=== PATIENT | female | born 1950 | race Caucasian/White ===

== ENCOUNTER 2020-08-07 16:20 | Inpatient (IN) ==
[2020-08-07] MEDS ORDERED: 0.9 % Sodium Chloride 1,000 ML IVC ONE (17:50)
[2020-08-07] MEDS ORDERED: Ondansetron 4 MG/2 ML VIAL IVP ONE (17:50)
[2020-08-07] MEDS ORDERED: Isovue-370 500 ML BOTTLE IVP ONE (17:51)
[2020-08-07 18:11] LABS: Basophils % 0.4 %; Hemoglobin 11.4 g/dL (11.5-15.4); Immature Granulocytes % 0.4 % (0-4)
[2020-08-07 18:11] LABS: Bilirubin,Urine Negative (Negative); Blood,Urine Negative (Negative); Clarity,Urine Clear (Clear); Color,Urine Yellow (Yellow); Glucose,Urine (UA) Normal (Normal); Ketones,Urine Negative (Negative); Leukocyte Esterase,Urine Negative (Negative); Nitrite,Urine Negative (Negative); PH,Urine 6.5 pH Units (5.0-8.0); Protein,Urine Negative (Neg-Trace); Specific Gravity,Urine 1.015 (1.010-1.025); Urobilinogen,Urine Normal (Normal)
[2020-08-07 18:13] LABS: Eosinophils # 0.1 K/mcL (0.0-0.6); Eosinophils % 3.9 %; Hematocrit 35.7 % (35.3-44.9); Immature Platelets 2.2 % (1.1-6.1); Lymphocytes # 0.8 K/mcL (0.6-4.6); Lymphocytes % 32.7 %; Mean Corpuscular HGB Conc 31.9 g/dL (31.6-35.5); Mean Corpuscular Hemoglobin 28.1 pg (28.0-33.3); Mean Corpuscular Volume 88.1 fL (83.0-100.0); Mean Platelet Volume 10.2 fL (9.4-12.4); Monocytes # 0.2 K/mcL (0.0-1.3); Monocytes % 8.7 %; Neutrophils # 1.4 K/mcL (1.6-8.9); Red Blood Count 4.05 M/mcL (3.82-4.97); Segmented Neutrophils % 53.9 %; White Blood Count 2.5 K/mcL (4.3-11.1)
[2020-08-07 18:16] LABS: Platelet Count 94 K/mcL (140-400)
[2020-08-07 18:33] LABS: Alanine Aminotransferase 6 Units/L (7-52); Albumin 3.8 g/dL (3.5-5.7); Albumin/Globulin Ratio 1.3 (1.1-2.2); Alkaline Phosphatase 67 Units/L (34-104); Amylase 21 Units/L (29-103); Aspartate Amino Transferase 11 Units/L (13-39); BUN/Creatinine Ratio 23 (6-26); Bilirubin,Direct 0.1 mg/dL (0.0-0.2); Bilirubin,Indirect 0.4 mg/dL (0.0-1.0); Bilirubin,Total 0.5 mg/dL (0.3-1.0); Blood Urea Nitrogen 16 mg/dL (8-23); Calcium 9.3 mg/dL (8.6-10.3); Carbon Dioxide 31 mEq/L (23-29); Chloride 95 mEq/L (98-107); Glucose 162 mg/dL (70-105); Lipase 13 Units/L (11-82); Osmolality,Calculated 281 (280-300); Potassium 3.9 mEq/L (3.5-5.1); Sodium 133 mEq/L (136-145); Total Protein 6.8 g/dL (6.4-8.9); Troponin I < 0.03 ng/mL (< 0.04); eGFR For African Americans > 60 (> 60); eGFR For Non-African Americans > 60 (> 60)
[2020-08-07 20:36] LABS: Lactate Dehydrogenase 164 Units/L (140-271); Phosphorous 2.6 mg/dL (2.7-4.5); Uric Acid 2.4 mg/dL (2.3-7.6)
[2020-08-07] MEDS ORDERED: Naloxone 0.4 MG/ML INJ IVP PRN ×2 (22:54→22:56)
[2020-08-07] MEDS ORDERED: Ondansetron 4 MG/2 ML VIAL IVP PRN (22:55)
[2020-08-07] MEDS ORDERED: 0.9 % Sodium Chloride 1,000 ML IVC SCH (23:00)
[2020-08-07] MEDS: *HR* Heparin 5,000 UNIT/ML VIAL SQ SCH (23:15)
[2020-08-08] MEDS ORDERED: *HR* LORazepam 2 MG/ML VIAL IVP ONE ×2 (03:16)
[2020-08-08] MEDS ORDERED: Morphine Sulfate 2 MG/ML SYRINGE IVP PRN ×2 (03:19→12:07)
[2020-08-08] MEDS: *HR* Heparin 5,000 UNIT/ML VIAL SQ SCH ×2 (04:56→20:57)
[2020-08-08] MEDS ORDERED: *HR* Propofol 200 MG/20 ML VIAL IVP ONE (10:04)
[2020-08-08] MEDS ORDERED: Dexamethasone 4 MG/ML VIAL ONE (10:04)
[2020-08-08] MEDS ORDERED: Lidocaine -MPF 2% 2 ML VIAL ONE (10:04)
[2020-08-08] MEDS ORDERED: *HR* Rocuronium Bromide 50 MG/5 ML VIAL ONE (10:04)
[2020-08-08] MEDS ORDERED: Ondansetron 4 MG/2 ML VIAL ONE (10:04)
[2020-08-08] MEDS ORDERED: *HR* FentaNYL (PF) 100 MCG/2 ML VIAL ONE (10:04)
[2020-08-08] MEDS ORDERED: *HR* Meperidine 25 MG/ML SYRINGE IVP PRN ×2 (10:49→11:13)
[2020-08-08 11:19] LABS: Adenovirus Not Detected (Not Detect); Bordetella Pertussis Not Detected (Not Detect); Chlamydophila pneumoniae Not Detected (Not Detect); Coronavirus 229E Not Detected (Not Detect); Coronavirus HKU1 Not Detected (Not Detect); Coronavirus NL63 Not Detected (Not Detect); Coronavirus OC43 Not Detected (Not Detect); Human Metapneumovirus Not Detected (Not Detect); Human Rhinovirus/Enterovirus DETECTED (Not Detect); Influenza A Subtype 2009 H1 Not Detected (Not Detect); Influenza B Not Detected (Not Detect); Mycoplasma pneumoniae Not Detected (Not Detect); Parainfluenza Virus 1 Not Detected (Not Detect); Parainfluenza Virus 2 Not Detected (Not Detect); Parainfluenza Virus 3 Not Detected (Not Detect); Parainfluenza Virus 4 Not Detected (Not Detect); Respiratory Syncytial Virus Not Detected (Not Detect); SARS-CoV-2 Not Detected (Not Detect)
[2020-08-08] MEDS ORDERED: *HR* Magnesium Sulfate 1 GM/2 ML VIAL ONE (12:06)
[2020-08-08] MEDS ORDERED: *HR* Succinylcholine 200 MG/10 ML VIAL IVP ONE (12:06)
[2020-08-08] MEDS ORDERED: *HR* HYDROmorphone PF 0.5 MG/0.5 ML SYRINGE IVP PRN (12:07)
[2020-08-08] MEDS ORDERED: Ondansetron 4 MG/2 ML VIAL IVP ONE (12:07)
[2020-08-08] MEDS ORDERED: Acetaminophen IV 1,000 MG/100 ML INFUS..BTL IVPB ONE ×2 (12:07→15:59)
[2020-08-08] MEDS ORDERED: Ketorolac 15 MG/ML VIAL IVP ONE (12:07)
[2020-08-08] MEDS ORDERED: Ringers Solution, Lactated 1,000 ML IVC SCH (12:15)
[2020-08-08] MEDS ORDERED: ROPIVACAINE/PF/NS 0.25% 1 EACH SYRINGE INTRAART ONE ×2 (12:24→12:25)
[2020-08-08] MEDS ORDERED: Albumin Human 5% 25.0 GM/500 ML IV.SOLN ONE (12:24)
[2020-08-08] MEDS ORDERED: Clindamycin 600 MG/50 ML 600 MG/50 ML IV.SOLN IVPB ONE ×2 (12:35→12:59)
[2020-08-08] MEDS ORDERED: *HR* HYDROMORPHONE 2 MG/ML VIAL ONE (13:00)
[2020-08-08] MEDS ORDERED: Gabapentin 300 MG CAPSULE PO SCH (15:00)
[2020-08-08] MEDS: *HR* HYDROmorphone (PF) 1 MG/ML SYRINGE IVP PRN ×2 (15:20→15:33)
[2020-08-08] MEDS ORDERED: Ondansetron 4 MG/2 ML VIAL IVP PRN (15:59)
[2020-08-08] MEDS ORDERED: 0.9 % Sodium Chloride 1,000 ML IVC SCH (15:59)
[2020-08-08] MEDS ORDERED: Naloxone 0.4 MG/ML INJ IVP PRN ×2 (15:59)
[2020-08-08] MEDS: 0.9 % Sodium Chloride 1,000 ML IVC SCH ×3 (17:13→21:40)
[2020-08-08] MEDS: Gabapentin 300 MG CAPSULE PO SCH ×2 (17:14→20:54)
[2020-08-08] MEDS: *HR* HYDROcodone/Acet 10/325 mg TABLET PO PRN ×2 (17:15→23:24)
[2020-08-08] MEDS: Morphine Sulfate ER (12 HR) 30 MG TABLET.ER PO SCH (20:54)
[2020-08-08] MEDS ORDERED: traZODone 50 MG TABLET PO SCH (21:00)
[2020-08-09] MEDS ORDERED: Acetaminophen IV 1,000 MG/100 ML INFUS..BTL IVPB ONE (02:12)
[2020-08-09] MEDS ORDERED: Chloraseptic Spray 177 ML BOTTLE MM PRN (04:19)
[2020-08-09] MEDS ORDERED: *HR* HYDROmorphone 2 MG TABLET PO ONE (04:41)
[2020-08-09] MEDS: *HR* Heparin 5,000 UNIT/ML VIAL SQ SCH ×2 (06:48→13:21)
[2020-08-09] MEDS ORDERED: Loratadine 10 MG TABLET PO SCH (09:00)
[2020-08-09] MEDS ORDERED: Folic Acid 1 MG TABLET PO SCH ×3 (09:00)
[2020-08-09] MEDS ORDERED: Cyanocobalamin (B-12) 1,000 MCG TABLET PO SCH ×2 (09:00)
[2020-08-09] MEDS ORDERED: Isosorbide MONOnitrate (24 HR) 60 MG TAB.ER.24H PO SCH (09:00)
[2020-08-09] MEDS ORDERED: Fluticasone Propionate Nasal 50 MCG/SPRAY BOTTLE NS SCH (09:00)
[2020-08-09 09:08] LABS: Hemoglobin 11.3 g/dL (11.5-15.4); Mean Corpuscular Hemoglobin 27.6 pg (28.0-33.3)
[2020-08-09 09:10] LABS: Hematocrit 36.1 % (35.3-44.9); Immature Granulocytes % 0.5 % (0-4); Immature Platelets 2.1 % (1.1-6.1); Lymphocytes # 0.2 K/mcL (0.6-4.6); Lymphocytes % 9.5 %; Mean Corpuscular HGB Conc 31.3 g/dL (31.6-35.5); Mean Platelet Volume 10.4 fL (9.4-12.4); Monocytes # 0.2 K/mcL (0.0-1.3); Neutrophils # 1.7 K/mcL (1.6-8.9); Red Cell Distribution Width 16.7 % (11.5-14.5); White Blood Count 2.1 K/mcL (4.3-11.1)
[2020-08-09 09:18] LABS: Platelet Count 81 K/mcL (140-400); Platelet Estimate Decreased (Normal)
[2020-08-09 09:28] LABS: BUN/Creatinine Ratio 11 (6-26); Blood Urea Nitrogen 6 mg/dL (8-23); Calcium 7.6 mg/dL (8.6-10.3); Carbon Dioxide 25 mEq/L (23-29); Chloride 100 mEq/L (98-107); Glucose 168 mg/dL (70-105); Magnesium 1.7 mg/dL (1.6-2.6); Osmolality,Calculated 279 (280-300); Phosphorous 1.4 mg/dL (2.7-4.5); Potassium 3.3 mEq/L (3.5-5.1); Sodium 134 mEq/L (136-145); eGFR For African Americans > 60 (> 60); eGFR For Non-African Americans > 60 (> 60)
[2020-08-09] MEDS ORDERED: Morphine Sulfate 2 MG/ML SYRINGE IVP ONE (09:38)
[2020-08-09] MEDS: Gabapentin 300 MG CAPSULE PO SCH ×3 (10:56→23:23)
[2020-08-09] MEDS: Morphine Sulfate ER (12 HR) 30 MG TABLET.ER PO SCH (10:58)
[2020-08-09] MEDS ORDERED: Potassium Phosphate 44 MEQ in 0.9 % Sodium Chloride 250 ML IVPB ONE (11:07)
[2020-08-09] MEDS: Fluticasone Propionate Nasal 50 MCG/SPRAY BOTTLE NS SCH (11:50)
[2020-08-09] MEDS: *HR* FentaNYL (PF) 100 MCG/2 ML VIAL IVP PRN ×3 (11:59→19:35)
[2020-08-09] MEDS ORDERED: *HR* Metoprolol 5 MG/5 ML VIAL IVP SCH (12:00)
[2020-08-09] MEDS: 0.9 % Sodium Chloride w KCl 20 MEQ/1,000 ML MLS IVC SCH (13:20)
[2020-08-09] MEDS: *HR* Metoprolol 5 MG/5 ML VIAL IVP SCH ×3 (13:20→23:26)
[2020-08-09] MEDS: Acetaminophen IV 1,000 MG/100 ML INFUS..BTL IVPB SCH ×3 (14:32→23:26)
[2020-08-09] MEDS: Morphine Sulfate Oral CONC 10 MG/0.5 ML ORAL.SYG SL PRN ×2 (16:30→20:48)
[2020-08-09] MEDS: Ketorolac 15 MG/ML VIAL IVP SCH ×2 (18:18→23:26)
[2020-08-10] MEDS: *HR* Heparin 5,000 UNIT/ML VIAL SQ SCH ×5 (02:01→21:27)
[2020-08-10] MEDS: Morphine Sulfate Oral CONC 10 MG/0.5 ML ORAL.SYG SL PRN ×4 (02:01→19:52)
[2020-08-10] MEDS: *HR* FentaNYL (PF) 100 MCG/2 ML VIAL IVP PRN ×7 (03:59→22:20)
[2020-08-10] MEDS: 0.9 % Sodium Chloride w KCl 20 MEQ/1,000 ML MLS IVC SCH (04:00)
[2020-08-10] MEDS: *HR* Metoprolol 5 MG/5 ML VIAL IVP SCH ×4 (05:36→23:19)
[2020-08-10] MEDS: Acetaminophen IV 1,000 MG/100 ML INFUS..BTL IVPB SCH ×3 (05:37→18:04)
[2020-08-10] MEDS: Ketorolac 15 MG/ML VIAL IVP SCH ×3 (07:47→18:03)
[2020-08-10] MEDS: Pantoprazole 40 MG VIAL IVP SCH (08:17)
[2020-08-10] MEDS: Fluticasone Propionate Nasal 50 MCG/SPRAY BOTTLE NS SCH (08:20)
[2020-08-10] MEDS: Gabapentin 300 MG CAPSULE PO SCH ×3 (08:20→21:27)
[2020-08-10 08:56] LABS: Hematocrit 34.2 % (35.3-44.9); Hemoglobin 11.2 g/dL (11.5-15.4); Mean Corpuscular HGB Conc 32.7 g/dL (31.6-35.5); Mean Corpuscular Hemoglobin 27.7 pg (28.0-33.3); Mean Corpuscular Volume 84.4 fL (83.0-100.0); Mean Platelet Volume 9.8 fL (9.4-12.4); Red Blood Count 4.05 M/mcL (3.82-4.97); Red Cell Distribution Width 16.8 % (11.5-14.5); White Blood Count 1.2 K/mcL (4.3-11.1)
[2020-08-10 08:58] LABS: Platelet Count 83 K/mcL (140-400)
[2020-08-10 09:11] LABS: BUN/Creatinine Ratio 26 (6-26); Blood Urea Nitrogen 16 mg/dL (8-23); Calcium 8.7 mg/dL (8.6-10.3); Carbon Dioxide 28 mEq/L (23-29); Chloride 101 mEq/L (98-107); Glucose 153 mg/dL (70-105); Magnesium 1.9 mg/dL (1.6-2.6); Osmolality,Calculated 290 (280-300); Phosphorous 1.4 mg/dL (2.7-4.5); Potassium 2.9 mEq/L (3.5-5.1); Sodium 138 mEq/L (136-145); eGFR For African Americans > 60 (> 60); eGFR For Non-African Americans > 60 (> 60)
[2020-08-10 09:37] LABS: Lymphocytes # 0.2 K/mcL (0.6-4.6); Monocytes # 0.1 K/mcL (0.0-1.3); Neutrophils # 0.9 K/mcL (1.6-8.9)
[2020-08-10 09:38] LABS: Anisocytosis 1+ (Not Present); Platelet Estimate Decreased (Normal)
[2020-08-10] MEDS ORDERED: Potassium Chloride 40 MEQ, Lidocaine 1% 2 ML in D5% in Water 500 ML IVPB ONE (09:50)
[2020-08-10] MEDS ORDERED: Potassium Phosphate 44 MEQ in 0.9 % Sodium Chloride 250 ML IVPB ONE ×2 (11:00→22:28)
[2020-08-10] MEDS: 0.45 % Sodium Chloride w/KCl 20 MEQ/1,000 ML MLS IVC SCH (18:07)
[2020-08-10] MEDS: 0.9 % Sodium Chloride 1,000 ML IVC SCH (19:14)
[2020-08-10 19:40] LABS: Phosphorous 1.7 mg/dL (2.7-4.5); Potassium 2.7 mEq/L (3.5-5.1)
[2020-08-11] MEDS: Morphine Sulfate Oral CONC 10 MG/0.5 ML ORAL.SYG SL PRN ×2 (00:21→04:32)
[2020-08-11] MEDS: Acetaminophen IV 1,000 MG/100 ML INFUS..BTL IVPB SCH ×5 (00:22→18:13)
[2020-08-11] MEDS: Ketorolac 15 MG/ML VIAL IVP SCH ×4 (00:22→16:54)
[2020-08-11] MEDS: *HR* FentaNYL (PF) 100 MCG/2 ML VIAL IVP PRN ×3 (01:21→05:31)
[2020-08-11] MEDS: 0.45 % Sodium Chloride w/KCl 20 MEQ/1,000 ML MLS IVC SCH (02:32)
[2020-08-11 05:37] LABS: Mean Corpuscular Volume 86.5 fL (83.0-100.0)
[2020-08-11 05:39] LABS: Hematocrit 29.4 % (35.3-44.9); Hemoglobin 9.6 g/dL (11.5-15.4); Immature Granulocytes % 23.1 % (0-4); Immature Platelets 2.3 % (1.1-6.1); Lymphocytes # 0.1 K/mcL (0.6-4.6); Lymphocytes % 23.1 %; Mean Corpuscular HGB Conc 32.7 g/dL (31.6-35.5); Mean Corpuscular Hemoglobin 28.2 pg (28.0-33.3); Mean Platelet Volume 9.6 fL (9.4-12.4); Monocytes # 0.1 K/mcL (0.0-1.3); Monocytes % 15.4 %; Neutrophils # 0.2 K/mcL (1.6-8.9); Red Cell Distribution Width 17.1 % (11.5-14.5); Segmented Neutrophils % 38.4 %
[2020-08-11 05:53] LABS: Platelet Count 69 K/mcL (140-400)
[2020-08-11 05:55] LABS: White Blood Count 0.4 K/mcL (4.3-11.1)
[2020-08-11 05:57] LABS: BUN/Creatinine Ratio 33 (6-26); Blood Urea Nitrogen 18 mg/dL (8-23); Calcium 7.6 mg/dL (8.6-10.3); Carbon Dioxide 25 mEq/L (23-29); Chloride 103 mEq/L (98-107); Glucose 105 mg/dL (70-105); Magnesium 1.8 mg/dL (1.6-2.6); Osmolality,Calculated 290 (280-300); Phosphorous 2.5 mg/dL (2.7-4.5); Potassium 2.7 mEq/L (3.5-5.1); Sodium 139 mEq/L (136-145); eGFR For African Americans > 60 (> 60); eGFR For Non-African Americans > 60 (> 60)
[2020-08-11] MEDS: *HR* Heparin 5,000 UNIT/ML VIAL SQ SCH ×2 (06:10→12:44)
[2020-08-11] MEDS: *HR* Metoprolol 5 MG/5 ML VIAL IVP SCH ×3 (06:10→16:54)
[2020-08-11 06:14] LABS: Platelet Estimate Decreased (Normal)
[2020-08-11 06:15] LABS: Anisocytosis 1+ (Not Present)
[2020-08-11] MEDS ORDERED: *HR* FentaNYL PATCH 25 MCG PATCH TD SCH (08:00)
[2020-08-11] MEDS ORDERED: Morphine Sulfate Oral CONC 10 MG/0.5 ML ORAL.SYG SL PRN (08:01)
[2020-08-11] MEDS ORDERED: *HR* HYDROmorphone (PF) 1 MG/ML SYRINGE IVP ONE (08:02)
[2020-08-11] MEDS ORDERED: Orphenadrine 60 MG/2 ML VIAL IVP PRN ×2 (08:05→22:10)
[2020-08-11] MEDS: Fluticasone Propionate Nasal 50 MCG/SPRAY BOTTLE NS SCH (08:16)
[2020-08-11] MEDS: Gabapentin 300 MG CAPSULE PO SCH ×2 (08:17→14:56)
[2020-08-11] MEDS: Pantoprazole 40 MG VIAL IVP SCH (08:17)
[2020-08-11] MEDS ORDERED: Dextrose Gel 15 GM/37.5 ML TUBE PO PRN ×4 (12:28→22:10)
[2020-08-11] MEDS ORDERED: D5% in Water 1,000 ML IVC PRN ×4 (12:28→22:10)
[2020-08-11] MEDS: *HR* Dextrose 50 % in Water (Vial) 50 ML VIAL IVP PRN ×2 (12:39→17:15)
[2020-08-11] MEDS ORDERED: Isovue-370 500 ML BOTTLE IVP ONE ×2 (14:06→16:43)
[2020-08-11] MEDS ORDERED: 0.9 % Sodium Chloride 1,000 ML IVC ONE (15:10)
[2020-08-11] MEDS ORDERED: 0.45 % Sodium Chloride w/KCl 20 MEQ/1,000 ML MLS IVC SCH (16:16)
[2020-08-11] MEDS ORDERED: D5% in 0.9% NACL w KCl 20 MEQ/1,000 ML MLS IVC SCH (17:30)
[2020-08-11] MEDS ORDERED: levoFLOXacin 750 MG/150 ML 750 MG/150 ML BAG IVPB SCH (19:00)
[2020-08-11] MEDS ORDERED: MetroNIDAZOLE 500 MG/100 ML 500 MG/100 ML BAG IVPB SCH (19:00)
[2020-08-11] MEDS ORDERED: *HR* Midazolam HCl 2 MG/2 ML VIAL ONE (19:01)
[2020-08-11] MEDS ORDERED: Ondansetron 4 MG/2 ML VIAL ONE (19:01)
[2020-08-11] MEDS ORDERED: *HR* FentaNYL (PF) 100 MCG/2 ML VIAL ONE ×2 (19:01→21:47)
[2020-08-11] MEDS ORDERED: *HR* Rocuronium Bromide 50 MG/5 ML VIAL ONE (19:01)
[2020-08-11] MEDS ORDERED: Lidocaine -MPF 2% 2 ML VIAL ONE (19:01)
[2020-08-11] MEDS ORDERED: *HR* Succinylcholine 200 MG/10 ML VIAL IVP ONE (19:01)
[2020-08-11] MEDS ORDERED: *HR* Propofol 200 MG/20 ML VIAL IVP ONE (19:01)
[2020-08-11] MEDS ORDERED: Dexamethasone 4 MG/ML VIAL ONE (19:01)
[2020-08-11] MEDS ORDERED: *HR* Vasopressin 20 UNIT/ML VIAL ONE (20:21)
[2020-08-11] MEDS ORDERED: Albumin Human 5% 12.5 GM/250 ML IV.SOLN ONE (20:45)
[2020-08-11] MEDS ORDERED: *HR* HYDROMORPHONE 2 MG/ML VIAL ONE (20:59)
[2020-08-11] MEDS ORDERED: *HR* HYDROmorphone 2 MG/ML SYRINGE IVP PRN (22:10)
[2020-08-11] MEDS ORDERED: Naloxone 0.4 MG/ML INJ IVP PRN (22:10)
[2020-08-11] MEDS ORDERED: *HR* Dextrose 50 % in Water (Vial) 50 ML VIAL IVP PRN (22:10)
[2020-08-11] MEDS ORDERED: Chloraseptic Spray 177 ML BOTTLE MM PRN (22:10)
[2020-08-11] MEDS ORDERED: Ondansetron 4 MG/2 ML VIAL IVP PRN (22:10)
[2020-08-11] MEDS ORDERED: Ringers Solution, Lactated 3,000 ML IVC ONE (22:27)
[2020-08-11] MEDS ORDERED: Ringers Solution, Lactated 2,000 ML ONE (22:34)
[2020-08-11] MEDS: D5% in 0.9% NACL w KCl 20 MEQ/1,000 ML MLS IVC SCH (22:37)
[2020-08-11 23:04] LABS: INR 1.8; Prothrombin Time 20.9 Seconds (9.4-12.1)
[2020-08-11 23:07] LABS: Activated Partial Thrombo Time 34.2 Seconds (26.0-36.0)
[2020-08-11 23:08] LABS: Red Cell Distribution Width 17.2 % (11.5-14.5)
[2020-08-11 23:10] LABS: Hematocrit 23.7 % (35.3-44.9); Hemoglobin 7.6 g/dL (11.5-15.4); Lymphocytes # 0.1 K/mcL (0.6-4.6); Mean Corpuscular HGB Conc 32.1 g/dL (31.6-35.5); Mean Corpuscular Volume 87.5 fL (83.0-100.0); Mean Platelet Volume 10.1 fL (9.4-12.4); Red Blood Count 2.71 M/mcL (3.82-4.97)
[2020-08-11 23:21] LABS: BUN/Creatinine Ratio 24 (6-26); Blood Urea Nitrogen 12 mg/dL (8-23); Calcium 6.6 mg/dL (8.6-10.3); Carbon Dioxide 20 mEq/L (23-29); Chloride 103 mEq/L (98-107); Glucose 93 mg/dL (70-105); Magnesium 1.3 mg/dL (1.6-2.6); Osmolality,Calculated 277 (280-300); Phosphorous 2.4 mg/dL (2.7-4.5); Potassium 3.3 mEq/L (3.5-5.1); Sodium 134 mEq/L (136-145); eGFR For African Americans > 60 (> 60); eGFR For Non-African Americans > 60 (> 60)
[2020-08-11] MEDS: MetroNIDAZOLE 500 MG/100 ML 500 MG/100 ML BAG IVPB SCH (23:46)
[2020-08-11] MEDS ORDERED: Potassium Phosphate 44 MEQ in 0.9 % Sodium Chloride 250 ML IVPB ONE (23:57)
[2020-08-11] MEDS ORDERED: Scopolamine Patch 1.5 MG PATCH.TD72 TD ONE (23:57)
[2020-08-12] MEDS: *HR* Metoprolol 5 MG/5 ML VIAL IVP SCH ×4 (00:07→17:03)
[2020-08-12 00:18] LABS: White Blood Count 0.3 K/mcL (4.3-11.1)
[2020-08-12 00:19] LABS: Platelet Count 40 K/mcL (140-400)
[2020-08-12] MEDS: Calcium Gluconate 1gm/50mL 1 GM/50 ML BAG IVPB SCH ×2 (00:20→00:54)
[2020-08-12 00:49] LABS: Anisocytosis 1+ (Not Present); Platelet Estimate Decreased (Normal)
[2020-08-12 00:50] LABS: Poikilocytosis 1+ (Not Present)
[2020-08-12 00:54] LABS: Neutrophils # 0.1 K/mcL (1.6-8.9)
[2020-08-12] MEDS: Morphine Sulfate Oral CONC 10 MG/0.5 ML ORAL.SYG SL PRN ×2 (01:31→08:04)
[2020-08-12] MEDS: *HR* HYDROmorphone (PF) 1 MG/ML SYRINGE IVP PRN ×2 (03:32→09:29)
[2020-08-12 04:09] LABS: BUN/Creatinine Ratio 21 (6-26); Blood Urea Nitrogen 8 mg/dL (8-23); Calcium 7.3 mg/dL (8.6-10.3); Carbon Dioxide 20 mEq/L (23-29); Chloride 103 mEq/L (98-107); Glucose 100 mg/dL (70-105); Osmolality,Calculated 276 (280-300); Potassium 3.7 mEq/L (3.5-5.1); Sodium 134 mEq/L (136-145); eGFR For African Americans > 60 (> 60); eGFR For Non-African Americans > 60 (> 60)
[2020-08-12] MEDS: *HR* Heparin 5,000 UNIT/ML VIAL SQ SCH ×3 (06:10→21:42)
[2020-08-12] MEDS: Gabapentin 300 MG CAPSULE PO SCH ×3 (08:05→21:39)
[2020-08-12] MEDS: Fluticasone Propionate Nasal 50 MCG/SPRAY BOTTLE NS SCH (08:21)
[2020-08-12] MEDS: Pantoprazole 40 MG VIAL IVP SCH (08:21)
[2020-08-12] MEDS: D5% in 0.9% NACL w KCl 20 MEQ/1,000 ML MLS IVC SCH ×2 (08:22→18:48)
[2020-08-12] MEDS: MetroNIDAZOLE 500 MG/100 ML 500 MG/100 ML BAG IVPB SCH ×2 (08:49→16:23)
[2020-08-12] MEDS ORDERED: Fluconazole 400 MG/200 ML 400 MG/200 ML BAG IVPB SCH (09:45)
[2020-08-12 10:35] LABS: Hematocrit 24.5 % (35.3-44.9); Hemoglobin 7.8 g/dL (11.5-15.4); Lymphocytes # 0.1 K/mcL (0.6-4.6); Lymphocytes % 19.2 %; Mean Corpuscular HGB Conc 31.8 g/dL (31.6-35.5); Mean Corpuscular Hemoglobin 28.1 pg (28.0-33.3); Mean Corpuscular Volume 88.1 fL (83.0-100.0); Mean Platelet Volume 10.4 fL (9.4-12.4); Monocytes # 0.1 K/mcL (0.0-1.3); Monocytes % 34.6 %; Neutrophils # 0.1 K/mcL (1.6-8.9); Platelet Count 42 K/mcL (140-400); Red Blood Count 2.78 M/mcL (3.82-4.97); Red Cell Distribution Width 17.2 % (11.5-14.5); Segmented Neutrophils % 46.2 %
[2020-08-12 10:39] LABS: White Blood Count 0.3 K/mcL (4.3-11.1)
[2020-08-12] MEDS: *HR* HYDROmorphone 20 MG/20 ML PCA IVC PRN (10:56)
[2020-08-12 11:00] LABS: Magnesium 1.9 mg/dL (1.6-2.6); Phosphorous 2.4 mg/dL (2.7-4.5); Triglycerides 214 mg/dL (< 150)
[2020-08-12] MEDS ORDERED: Potassium Phosphate 44 MEQ in 0.9 % Sodium Chloride 250 ML IVPB ONE (11:13)
[2020-08-12] MEDS ORDERED: D5% in Water 1,000 ML IVC PRN (11:14)
[2020-08-12] MEDS ORDERED: Dextrose Gel 15 GM/37.5 ML TUBE PO PRN ×2 (11:14)
[2020-08-12] MEDS: Insulin LISPRO 300 UNITS/3 ML VIAL SQ SCH ×3 (16:14→21:56)
[2020-08-12] MEDS ORDERED: Clinimix E 5%-15% SOLUTION 2,000 ML with MVI, adult with vitamin K 10 ML IVC SCH (17:00)
[2020-08-12] MEDS ORDERED: Clinimix E 5%-20% SOLUTION 2,000 ML with MVI, adult with vitamin K 10 ML IVC SCH (17:00)
[2020-08-12] MEDS ORDERED: levoFLOXacin 750 MG/150 ML 750 MG/150 ML BAG IVPB SCH (18:00)
[2020-08-12] MEDS ORDERED: 0.9 % Sodium Chloride 250 ML ONE (22:57)
[2020-08-13] MEDS: *HR* Metoprolol 5 MG/5 ML VIAL IVP SCH ×5 (00:58→23:40)
[2020-08-13] MEDS: Insulin LISPRO 300 UNITS/3 ML VIAL SQ SCH ×7 (00:59→23:41)
[2020-08-13] MEDS: MetroNIDAZOLE 500 MG/100 ML 500 MG/100 ML BAG IVPB SCH ×4 (01:01→23:41)
[2020-08-13 04:23] LABS: Hematocrit 32.2 % (35.3-44.9); Hemoglobin 10.4 g/dL (11.5-15.4); Immature Platelets 5.5 % (1.1-6.1); Lymphocytes # 0.1 K/mcL (0.6-4.6); Lymphocytes % 43.3 %; Mean Corpuscular HGB Conc 32.3 g/dL (31.6-35.5); Mean Corpuscular Hemoglobin 28.2 pg (28.0-33.3); Mean Corpuscular Volume 87.3 fL (83.0-100.0); Monocytes # 0.1 K/mcL (0.0-1.3); Neutrophils # 0.1 K/mcL (1.6-8.9); Nucleated Red Blood Cells 6.7 /100 WBC (0); Red Blood Count 3.69 M/mcL (3.82-4.97); Red Cell Distribution Width 16.2 % (11.5-14.5); Segmented Neutrophils % 36.7 %
[2020-08-13 04:24] LABS: Platelet Count 31 K/mcL (140-400)
[2020-08-13 04:27] LABS: White Blood Count 0.3 K/mcL (4.3-11.1)
[2020-08-13 04:37] LABS: BUN/Creatinine Ratio 28 (6-26); Blood Urea Nitrogen 11 mg/dL (8-23); Calcium 7.2 mg/dL (8.6-10.3); Carbon Dioxide 24 mEq/L (23-29); Chloride 110 mEq/L (98-107); Glucose 193 mg/dL (70-105); Osmolality,Calculated 293 (280-300); Phosphorous 1.1 mg/dL (2.7-4.5); Sodium 139 mEq/L (136-145); eGFR For African Americans > 60 (> 60); eGFR For Non-African Americans > 60 (> 60)
[2020-08-13] MEDS: D5% in 0.9% NACL w KCl 20 MEQ/1,000 ML MLS IVC SCH ×2 (04:39→20:12)
[2020-08-13 05:13] LABS: Platelet Estimate Marked Decrease (Normal)
[2020-08-13] MEDS: *HR* Heparin 5,000 UNIT/ML VIAL SQ SCH (06:12)
[2020-08-13] MEDS ORDERED: Furosemide 20 MG/2 ML VIAL IVP ONE ×3 (07:19→17:56)
[2020-08-13] MEDS ORDERED: Perflutren Lipid Microsphere 1.3 ML in 0.9 % Sodium Chloride 8.7 ML IVP PRN (08:06)
[2020-08-13] MEDS ORDERED: Potassium Phosphate 44 MEQ in 0.9 % Sodium Chloride 250 ML IVPB ONE (08:11)
[2020-08-13] MEDS ORDERED: Isovue-370 500 ML BOTTLE IVP ONE (08:24)
[2020-08-13] MEDS: Gabapentin 300 MG CAPSULE PO SCH ×3 (09:19→20:12)
[2020-08-13] MEDS: Pantoprazole 40 MG VIAL IVP SCH (09:19)
[2020-08-13] MEDS: Fluticasone Propionate Nasal 50 MCG/SPRAY BOTTLE NS SCH (09:20)
[2020-08-13] MEDS: Fluconazole 400 MG/200 ML 400 MG/200 ML BAG IVPB SCH (09:24)
[2020-08-13 09:37] LABS: ABG Base Excess -1 mEq/L (-2 to 3); ABG HCO3 25 mEq/L (21-27); ABG Oxygen Saturation 97 % (95-98); ABG PCO2 44 mmHg (35-45); ABG PH 7.36 pH Units (7.32-7.45); ABG PO2 92 mmHg (85-104); ABG TCO2 26 mEq/L (20-26)
[2020-08-13] MEDS: Budesonide/Formoterol 160/4.5 1 PUFF INH IH SCH ×2 (09:43→20:04)
[2020-08-13 10:32] LABS: INR 1.2; Prothrombin Time 13.7 Seconds (9.4-12.1)
[2020-08-13 10:34] LABS: Activated Partial Thrombo Time 32.5 Seconds (26.0-36.0); Albumin 2.6 g/dL (3.5-5.7); Albumin/Globulin Ratio 0.9 (1.1-2.2); Bilirubin,Direct 0.4 mg/dL (0.0-0.2); Bilirubin,Indirect 0.6 mg/dL (0.0-1.0); Globulin 2.8 g/dL (2.4-3.5); Total Protein 5.4 g/dL (6.4-8.9)
[2020-08-13] MEDS: Ipratropium/Albuterol Neb 3 ML IH SCH ×3 (11:15→20:04)
[2020-08-13] MEDS: Cefepime HCl 2,000 MG in Water for inj. (sterile) 20 ML IVP SCH ×3 (11:43→23:40)
[2020-08-13] MEDS ORDERED: Clinimix E 5%-15% SOLUTION 2,000 ML with MVI, adult with vitamin K 10 ML IVC SCH (17:00)
[2020-08-13] MEDS ORDERED: *HR* Metoprolol 5 MG/5 ML VIAL IVP ONE (19:45)
[2020-08-13] MEDS ORDERED: Acetaminophen 650 MG RECTAL SUPP RC PRN (23:14)
[2020-08-13] MEDS: Dexmedetomidine HCl 400 MCG/100 ML MLS IVC SCH (23:40)
[2020-08-14 00:54] LABS: ABG Base Excess 0 mEq/L (-2 to 3); ABG HCO3 26 mEq/L (21-27); ABG Oxygen Saturation 98 % (95-98); ABG PCO2 44 mmHg (35-45); ABG PH 7.38 pH Units (7.32-7.45); ABG PO2 109 mmHg (85-104); ABG TCO2 27 mEq/L (20-26); Blood Gas Pressure Support 6 cm H2O
[2020-08-14] MEDS: Ipratropium/Albuterol Neb 3 ML IH SCH ×7 (00:58→23:52)
[2020-08-14] MEDS: Insulin LISPRO 300 UNITS/3 ML VIAL SQ SCH ×6 (04:54→23:49)
[2020-08-14 05:07] LABS: BUN/Creatinine Ratio 30 (6-26); Blood Urea Nitrogen 18 mg/dL (8-23); Calcium 7.1 mg/dL (8.6-10.3); Carbon Dioxide 27 mEq/L (23-29); Chloride 107 mEq/L (98-107); Glucose 281 mg/dL (70-105); Magnesium 1.7 mg/dL (1.6-2.6); Osmolality,Calculated 302 (280-300); Phosphorous 1.7 mg/dL (2.7-4.5); Potassium 3.8 mEq/L (3.5-5.1); Sodium 140 mEq/L (136-145); eGFR For African Americans > 60 (> 60); eGFR For Non-African Americans > 60 (> 60)
[2020-08-14] MEDS: *HR* Metoprolol 5 MG/5 ML VIAL IVP SCH ×4 (05:52→23:48)
[2020-08-14] MEDS: Budesonide/Formoterol 160/4.5 1 PUFF INH IH SCH ×2 (07:12→19:57)
[2020-08-14] MEDS ORDERED: *HR* FentaNYL PATCH 25 MCG PATCH TD SCH (08:00)
[2020-08-14 08:17] LABS: Hematocrit 35.1 % (35.3-44.9); Lymphocytes # 0.3 K/mcL (0.6-4.6); Lymphocytes % 55.1 %; Mean Corpuscular HGB Conc 31.3 g/dL (31.6-35.5); Mean Corpuscular Hemoglobin 27.3 pg (28.0-33.3); Mean Corpuscular Volume 87.1 fL (83.0-100.0); Monocytes # 0.1 K/mcL (0.0-1.3); Monocytes % 18.4 %; Neutrophils # 0.1 K/mcL (1.6-8.9); Red Blood Count 4.03 M/mcL (3.82-4.97); Red Cell Distribution Width 17.2 % (11.5-14.5); Segmented Neutrophils % 24.5 %
[2020-08-14] MEDS: Cefepime HCl 2,000 MG in Water for inj. (sterile) 20 ML IVP SCH ×3 (08:17→23:48)
[2020-08-14] MEDS: Pantoprazole 40 MG VIAL IVP SCH (08:18)
[2020-08-14] MEDS: Gabapentin 300 MG CAPSULE PO SCH ×3 (08:19→19:45)
[2020-08-14 08:21] LABS: White Blood Count 0.5 K/mcL (4.3-11.1)
[2020-08-14 08:23] LABS: Platelet Count 23 K/mcL (140-400)
[2020-08-14 08:51] LABS: Anisocytosis 1+ (Not Present); Platelet Estimate Decreased (Normal)
[2020-08-14] MEDS: MetroNIDAZOLE 500 MG/100 ML 500 MG/100 ML BAG IVPB SCH ×3 (08:53→23:47)
[2020-08-14] MEDS: Fluconazole 400 MG/200 ML 400 MG/200 ML BAG IVPB SCH (08:54)
[2020-08-14] MEDS: Fluticasone Propionate Nasal 50 MCG/SPRAY BOTTLE NS SCH (09:01)
[2020-08-14 09:23] LABS: ABG Base Excess 2 mEq/L (-2 to 3); ABG HCO3 26 mEq/L (21-27); ABG Oxygen Saturation 100 % (95-98); ABG PCO2 35 mmHg (35-45); ABG PH 7.47 pH Units (7.32-7.45); ABG PO2 160 mmHg (85-104); ABG TCO2 27 mEq/L (20-26); Blood Gas VT 12 cc
[2020-08-14] MEDS ORDERED: Insulin DETEMIR 100 UNIT/ML X5UNITS SQ ONE (10:30)
[2020-08-14] MEDS: Dexmedetomidine HCl 400 MCG/100 ML MLS IVC SCH (10:52)
[2020-08-14] MEDS ORDERED: Vancomycin 1 EACH in 0.9 % Sodium Chloride 250 ML IVPB PRN (12:00)
[2020-08-14] MEDS ORDERED: Furosemide 20 MG/2 ML VIAL IVP ONE (14:50)
[2020-08-14] MEDS ORDERED: 0.9 % Sodium Chloride 250 ML ONE (15:48)
[2020-08-14] MEDS: D5% in 0.9% NACL w KCl 20 MEQ/1,000 ML MLS IVC SCH (16:08)
[2020-08-14] MEDS ORDERED: Acetaminophen IV 500 MG/50 ML INFUS..BTL IVPB ONE (16:21)
[2020-08-14] MEDS ORDERED: Clinimix E 5%-15% SOLUTION 2,000 ML, Parenteral Amino Acid 10% 0 ML with MVI, adult wi... IVC SCH (17:00)
[2020-08-14] MEDS ORDERED: Clinimix E 5%-15% SOLUTION 2,000 ML with MVI, adult with vitamin K 10 ML, Trace Eleme... IVC SCH (17:00)
[2020-08-14] MEDS: *HR* HYDROmorphone 20 MG/20 ML PCA IVC PRN (17:44)
[2020-08-14] MEDS: Insulin DETEMIR 100 UNIT/ML X5UNITS SQ SCH (19:45)
[2020-08-14 21:50] LABS: BUN/Creatinine Ratio 36 (6-26); Blood Urea Nitrogen 20 mg/dL (8-23); Calcium 7.4 mg/dL (8.6-10.3); Carbon Dioxide 30 mEq/L (23-29); Chloride 106 mEq/L (98-107); Glucose 187 mg/dL (70-105); Magnesium 1.7 mg/dL (1.6-2.6); Osmolality,Calculated 302 (280-300); Phosphorous 2.3 mg/dL (2.7-4.5); Potassium 3.7 mEq/L (3.5-5.1); Sodium 142 mEq/L (136-145); Vancomycin,Trough 7 mcg/mL (5-10); eGFR For African Americans > 60 (> 60); eGFR For Non-African Americans > 60 (> 60)
[2020-08-15] MEDS: Ipratropium/Albuterol Neb 3 ML IH SCH ×5 (03:11→20:12)
[2020-08-15] MEDS: Insulin LISPRO 300 UNITS/3 ML VIAL SQ SCH ×6 (03:45→23:42)
[2020-08-15 04:25] LABS: VBG Ionized Calcium 1.08 mmol/L (1.15-1.35)
[2020-08-15 04:27] LABS: Basophils % 1.5 %; Hematocrit 31.2 % (35.3-44.9); Lymphocytes # 0.4 K/mcL (0.6-4.6); Lymphocytes % 63.1 %; Mean Corpuscular HGB Conc 32.1 g/dL (31.6-35.5); Mean Corpuscular Hemoglobin 27.5 pg (28.0-33.3); Monocytes # 0.1 K/mcL (0.0-1.3); Monocytes % 16.9 %; Neutrophils # 0.1 K/mcL (1.6-8.9); Red Blood Count 3.63 M/mcL (3.82-4.97); Red Cell Distribution Width 16.9 % (11.5-14.5); Segmented Neutrophils % 18.5 %
[2020-08-15 04:30] LABS: Platelet Count 21 K/mcL (140-400); White Blood Count 0.7 K/mcL (4.3-11.1)
[2020-08-15 04:37] LABS: Alanine Aminotransferase 9 Units/L (7-52); Albumin 2.2 g/dL (3.5-5.7); Albumin/Globulin Ratio 0.8 (1.1-2.2); Alkaline Phosphatase 26 Units/L (34-104); Aspartate Amino Transferase 38 Units/L (13-39); BUN/Creatinine Ratio 38 (6-26); Blood Urea Nitrogen 19 mg/dL (8-23); Calcium 7.4 mg/dL (8.6-10.3); Carbon Dioxide 26 mEq/L (23-29); Chloride 108 mEq/L (98-107); Globulin 2.8 g/dL (2.4-3.5); Glucose 173 mg/dL (70-105); Osmolality,Calculated 300 (280-300); Potassium 3.9 mEq/L (3.5-5.1); Sodium 142 mEq/L (136-145); eGFR For African Americans > 60 (> 60); eGFR For Non-African Americans > 60 (> 60)
[2020-08-15 04:58] LABS: Anisocytosis 1+ (Not Present)
[2020-08-15 04:59] LABS: Platelet Estimate Marked Decrease (Normal); Poikilocytosis 1+ (Not Present)
[2020-08-15 05:34] LABS: Magnesium 1.8 mg/dL (1.6-2.6); Phosphorous 1.8 mg/dL (2.7-4.5)
[2020-08-15] MEDS: *HR* Metoprolol 5 MG/5 ML VIAL IVP SCH ×4 (06:00→23:41)
[2020-08-15] MEDS ORDERED: Potassium Phosphate 44 MEQ in 0.9 % Sodium Chloride 250 ML IVPB ONE (06:30)
[2020-08-15] MEDS ORDERED: Furosemide 40 MG/4 ML VIAL IVP ONE (07:33)
[2020-08-15] MEDS: Budesonide/Formoterol 160/4.5 1 PUFF INH IH SCH ×2 (07:34→20:12)
[2020-08-15] MEDS: Dexmedetomidine HCl 400 MCG/100 ML MLS IVC SCH ×2 (09:30→18:11)
[2020-08-15] MEDS: Insulin DETEMIR 100 UNIT/ML X5UNITS SQ SCH ×2 (10:08→21:06)
[2020-08-15] MEDS: Cefepime HCl 2,000 MG in Water for inj. (sterile) 20 ML IVP SCH ×3 (10:09→23:39)
[2020-08-15] MEDS: Gabapentin 300 MG CAPSULE PO SCH ×3 (10:09→21:06)
[2020-08-15] MEDS: Pantoprazole 40 MG VIAL IVP SCH (10:09)
[2020-08-15] MEDS: MetroNIDAZOLE 500 MG/100 ML 500 MG/100 ML BAG IVPB SCH ×3 (10:10→23:41)
[2020-08-15] MEDS: Fluconazole 400 MG/200 ML 400 MG/200 ML BAG IVPB SCH (10:11)
[2020-08-15] MEDS: Fluticasone Propionate Nasal 50 MCG/SPRAY BOTTLE NS SCH (10:13)
[2020-08-15] MEDS: Vancomycin 1,500 MG/265 ML IV.SOLN IVPB SCH ×2 (10:13→23:38)
[2020-08-15] MEDS ORDERED: 0.9 % Sodium Chloride 250 ML ONE (10:58)
[2020-08-15] MEDS ORDERED: Insulin DETEMIR 100 UNIT/ML X5UNITS SQ SCH (11:21)
[2020-08-15] MEDS: D5% in 0.9% NACL w KCl 20 MEQ/1,000 ML MLS IVC SCH (13:46)
[2020-08-15] MEDS ORDERED: *HR* Etomidate 20 MG/10 ML AMPUL IVP ONE (14:53)
[2020-08-15] MEDS ORDERED: *HR* Midazolam HCl 5 MG/5 ML VIAL IVP ONE (14:53)
[2020-08-15 15:18] LABS: ABG Base Excess 5 mEq/L (-2 to 3); ABG HCO3 27 mEq/L (21-27); ABG Oxygen Saturation 96 % (95-98); ABG PCO2 31 mmHg (35-45); ABG PH 7.55 pH Units (7.32-7.45); ABG PO2 69 mmHg (85-104); ABG TCO2 28 mEq/L (20-26)
[2020-08-15] MEDS ORDERED: Artificial Tears SOLN 15 ML BOTTLE BOTH EYES PRN (16:21)
[2020-08-15] MEDS: FentaNYL (PF) 1,000 MCG/100 ML IV.SOLN IVC SCH (16:30)
[2020-08-15 16:56] LABS: ABG Base Excess 4 mEq/L (-2 to 3); ABG HCO3 28 mEq/L (21-27); ABG Oxygen Saturation 100 % (95-98); ABG PCO2 38 mmHg (35-45); ABG PH 7.48 pH Units (7.32-7.45); ABG PO2 424 mmHg (85-104); ABG TCO2 29 mEq/L (20-26); Blood Gas Modality ASSIST CONTROL; Blood Gas VT 380 cc
[2020-08-15] MEDS ORDERED: Clinimix E 5%-15% SOLUTION 2,000 ML with MVI, adult with vitamin K 10 ML, Potassium P... IVC SCH (17:00)
[2020-08-15] MEDS: Artificial Tears SOLN 15 ML BOTTLE BOTH EYES SCH ×2 (20:59→23:39)
[2020-08-15] MEDS: Chlorhexidine Rinse 15 ML MOUTHWASH MM SCH (21:06)
[2020-08-16] MEDS: Ipratropium/Albuterol Neb 3 ML IH SCH ×7 (00:10→23:47)
[2020-08-16] MEDS: Insulin LISPRO 300 UNITS/3 ML VIAL SQ SCH ×6 (03:51→23:48)
[2020-08-16] MEDS: Artificial Tears SOLN 15 ML BOTTLE BOTH EYES SCH ×6 (03:53→23:46)
[2020-08-16] MEDS: Dexmedetomidine HCl 400 MCG/100 ML MLS IVC SCH ×3 (03:57→19:42)
[2020-08-16] MEDS: FentaNYL (PF) 1,000 MCG/100 ML IV.SOLN IVC SCH ×3 (03:58→12:55)
[2020-08-16 04:38] LABS: ABG Base Excess 2 mEq/L (-2 to 3); ABG HCO3 26 mEq/L (21-27); ABG Oxygen Saturation 96 % (95-98); ABG PCO2 36 mmHg (35-45); ABG PH 7.46 pH Units (7.32-7.45); ABG PO2 77 mmHg (85-104); ABG TCO2 27 mEq/L (20-26); Blood Gas VT 380 cc
[2020-08-16 04:45] LABS: Hemoglobin 9.8 g/dL (11.5-15.4)
[2020-08-16 04:47] LABS: Hematocrit 30.9 % (35.3-44.9); Immature Platelets 10.3 % (1.1-6.1); Lymphocytes # 0.7 K/mcL (0.6-4.6); Lymphocytes % 71.9 %; Mean Corpuscular HGB Conc 31.7 g/dL (31.6-35.5); Mean Corpuscular Hemoglobin 27.8 pg (28.0-33.3); Mean Corpuscular Volume 87.5 fL (83.0-100.0); Monocytes # 0.1 K/mcL (0.0-1.3); Monocytes % 9.4 %; Neutrophils # 0.2 K/mcL (1.6-8.9); Red Blood Count 3.53 M/mcL (3.82-4.97); Red Cell Distribution Width 17.8 % (11.5-14.5); Segmented Neutrophils % 16.7 %
[2020-08-16 04:49] LABS: VBG Ionized Calcium 1.04 mmol/L (1.15-1.35)
[2020-08-16 05:01] LABS: BUN/Creatinine Ratio 37 (6-26); Blood Urea Nitrogen 23 mg/dL (8-23); Carbon Dioxide 25 mEq/L (23-29); Chloride 107 mEq/L (98-107); Glucose 189 mg/dL (70-105); Magnesium 1.8 mg/dL (1.6-2.6); Osmolality,Calculated 299 (280-300); Phosphorous 2.5 mg/dL (2.7-4.5); Potassium 3.9 mEq/L (3.5-5.1); Sodium 140 mEq/L (136-145); eGFR For African Americans > 60 (> 60); eGFR For Non-African Americans > 60 (> 60)
[2020-08-16 05:04] LABS: Platelet Count 16 K/mcL (140-400)
[2020-08-16 05:05] LABS: Anisocytosis 1+ (Not Present); Platelet Estimate Marked Decrease (Normal)
[2020-08-16] MEDS: *HR* Metoprolol 5 MG/5 ML VIAL IVP SCH ×2 (05:06→11:16)
[2020-08-16] MEDS: Budesonide/Formoterol 160/4.5 1 PUFF INH IH SCH ×2 (07:24→19:44)
[2020-08-16] MEDS ORDERED: Potassium Phosphate 44 MEQ in 0.9 % Sodium Chloride 250 ML IVPB ONE (07:43)
[2020-08-16] MEDS: Fluconazole 400 MG/200 ML 400 MG/200 ML BAG IVPB SCH (07:47)
[2020-08-16] MEDS: MetroNIDAZOLE 500 MG/100 ML 500 MG/100 ML BAG IVPB SCH ×3 (07:47→23:45)
[2020-08-16] MEDS: Gabapentin 300 MG CAPSULE PO SCH ×3 (07:49→20:18)
[2020-08-16] MEDS: Fluticasone Propionate Nasal 50 MCG/SPRAY BOTTLE NS SCH (07:51)
[2020-08-16] MEDS: Cefepime HCl 2,000 MG in Water for inj. (sterile) 20 ML IVP SCH ×3 (07:51→23:45)
[2020-08-16] MEDS: Insulin DETEMIR 100 UNIT/ML X5UNITS SQ SCH ×2 (07:51→20:20)
[2020-08-16] MEDS: Pantoprazole 40 MG VIAL IVP SCH (07:52)
[2020-08-16] MEDS: Chlorhexidine Rinse 15 ML MOUTHWASH MM SCH ×2 (07:52→20:18)
[2020-08-16 07:56] LABS: Bacteria,Urine Few per hpf (None-Few); Bilirubin,Urine Negative (Negative); Blood,Urine Large (Negative); Clarity,Urine Turbid (Clear); Color,Urine Yellow (Yellow); Glucose,Urine (UA) 200 mg/dL (Normal); Granular Casts,Urine Few per lpf (None Seen); Ketones,Urine Negative (Negative); Leukocyte Esterase,Urine Negative (Negative); Mucus,Urine Few per lpf (None-Few); Nitrite,Urine Negative (Negative); Protein,Urine 100 mg/dL (Neg-Trace); RBC,Urine 15-30 per hpf (0-3); Specific Gravity,Urine 1.028 (1.010-1.025); Squamous Epithelial Cell,Urine Few per hpf (None-Few); Urobilinogen,Urine Normal (Normal)
[2020-08-16] MEDS: Furosemide 40 MG/4 ML VIAL IVP SCH ×2 (08:40→20:19)
[2020-08-16] MEDS: Calcium Gluconate 1gm/50mL 1 GM/50 ML BAG IVPB SCH ×2 (08:40→09:00)
[2020-08-16] MEDS: Vancomycin 1,500 MG/265 ML IV.SOLN IVPB SCH ×2 (09:21→22:50)
[2020-08-16] MEDS ORDERED: *HR* Metoprolol 5 MG/5 ML VIAL IVP PRN (10:49)
[2020-08-16] MEDS: Norepinephrine 4 MG/254 ML IV.SOLN IVC SCH ×2 (11:15→22:57)
[2020-08-16 15:48] LABS: Appearance of Body Fluid Clear (Clear); Volume of Body Fluid 24 mL
[2020-08-16] MEDS ORDERED: Clinimix E 5%-15% SOLUTION 2,000 ML with MVI, adult with vitamin K 10 ML, Potassium P... IVC SCH (17:00)
[2020-08-16] MEDS: FentaNYL (PF) 2,500 MCG/50 ML IV.SOLN IVC SCH (17:32)
[2020-08-17] MEDS: Dexmedetomidine HCl 400 MCG/100 ML MLS IVC SCH ×5 (01:49→22:39)
[2020-08-17] MEDS: FentaNYL (PF) 2,500 MCG/50 ML IV.SOLN IVC SCH ×3 (01:54→21:00)
[2020-08-17] MEDS: Insulin LISPRO 300 UNITS/3 ML VIAL SQ SCH ×5 (03:40→20:07)
[2020-08-17] MEDS: Artificial Tears SOLN 15 ML BOTTLE BOTH EYES SCH ×5 (03:40→20:04)
[2020-08-17] MEDS: Ipratropium/Albuterol Neb 3 ML IH SCH ×6 (03:52→23:22)
[2020-08-17 04:39] LABS: ABG Base Excess -3 mEq/L (-2 to 3); ABG HCO3 23 mEq/L (21-27); ABG Oxygen Saturation 99 % (95-98); ABG PCO2 44 mmHg (35-45); ABG PH 7.33 pH Units (7.32-7.45); ABG PO2 168 mmHg (85-104); ABG TCO2 25 mEq/L (20-26); Blood Gas Modality ASSIST CONTROL; Blood Gas VT 380 cc
[2020-08-17 04:53] LABS: Hemoglobin 9.3 g/dL (11.5-15.4)
[2020-08-17 04:55] LABS: Hematocrit 31.1 % (35.3-44.9); Immature Platelets 15.2 % (1.1-6.1); Lymphocytes # 0.3 K/mcL (0.6-4.6); Mean Corpuscular HGB Conc 29.9 g/dL (31.6-35.5); Mean Corpuscular Hemoglobin 27.6 pg (28.0-33.3); Mean Corpuscular Volume 92.3 fL (83.0-100.0); Neutrophils # 0.1 K/mcL (1.6-8.9); Nucleated Red Blood Cells 3.8 /100 WBC (0); Red Blood Count 3.37 M/mcL (3.82-4.97); Red Cell Distribution Width 18.7 % (11.5-14.5)
[2020-08-17 05:02] LABS: Platelet Count 13 K/mcL (140-400); White Blood Count 0.5 K/mcL (4.3-11.1)
[2020-08-17 05:04] LABS: Calcium 6.4 mg/dL (8.6-10.3); Magnesium 2.3 mg/dL (1.6-2.6); Phosphorous 8.9 mg/dL (2.7-4.5); Potassium 5.6 mEq/L (3.5-5.1)
[2020-08-17 05:40] LABS: Platelet Estimate Marked Decrease (Normal); Reactive Lymphocytes Present (Not Present)
[2020-08-17 05:41] LABS: Anisocytosis 1+ (Not Present)
[2020-08-17] MEDS: Budesonide/Formoterol 160/4.5 1 PUFF INH IH SCH ×2 (07:26→19:37)
[2020-08-17] MEDS: MetroNIDAZOLE 500 MG/100 ML 500 MG/100 ML BAG IVPB SCH ×2 (07:56→15:47)
[2020-08-17] MEDS: Fluconazole 400 MG/200 ML 400 MG/200 ML BAG IVPB SCH (07:56)
[2020-08-17] MEDS: Fluticasone Propionate Nasal 50 MCG/SPRAY BOTTLE NS SCH (07:56)
[2020-08-17] MEDS: Cefepime HCl 2,000 MG in Water for inj. (sterile) 20 ML IVP SCH (07:58)
[2020-08-17] MEDS: Chlorhexidine Rinse 15 ML MOUTHWASH MM SCH ×2 (07:58→20:06)
[2020-08-17] MEDS: Pantoprazole 40 MG VIAL IVP SCH (07:59)
[2020-08-17] MEDS: Gabapentin 300 MG CAPSULE PO SCH ×3 (07:59→20:06)
[2020-08-17] MEDS: Insulin DETEMIR 100 UNIT/ML X5UNITS SQ SCH ×2 (08:03→20:06)
[2020-08-17] MEDS: Norepinephrine 4 MG/254 ML IV.SOLN IVC SCH (08:37)
[2020-08-17] MEDS: *HR* Midazolam HCl 2 MG/2 ML VIAL IVP PRN ×4 (09:01→22:34)
[2020-08-17] MEDS: Vancomycin 1,500 MG/265 ML IV.SOLN IVPB SCH ×2 (09:41→22:10)
[2020-08-17 11:47] LABS: VBG Ionized Calcium 0.85 mmol/L (1.15-1.35)
[2020-08-17 12:01] LABS: Albumin 1.9 g/dL (3.5-5.7); Albumin/Globulin Ratio 0.6 (1.1-2.2); Bilirubin,Total 1.1 mg/dL (0.3-1.0); Calcium 6.2 mg/dL (8.6-10.3); Globulin 3.1 g/dL (2.4-3.5); Magnesium 2.2 mg/dL (1.6-2.6); Phosphorous 8.6 mg/dL (2.7-4.5); Potassium 5.7 mEq/L (3.5-5.1)
[2020-08-17 15:25] LABS: Protein/Creatinine Ratio,Urine 4.54 mg/mg (0.00-0.20); Sodium, Urine 36.7 mEq/L
[2020-08-17] MEDS: D10% in Water 500 ML IVC PRN (16:21)
[2020-08-17] MEDS ORDERED: Clinimix E 5%-15% SOLUTION 2,000 ML with MVI, adult with vitamin K 10 ML IVC SCH (17:00)
[2020-08-18] MEDS: MetroNIDAZOLE 500 MG/100 ML 500 MG/100 ML BAG IVPB SCH ×3 (00:14→16:11)
[2020-08-18] MEDS: Artificial Tears SOLN 15 ML BOTTLE BOTH EYES SCH ×6 (00:14→20:03)
[2020-08-18] MEDS: Insulin LISPRO 300 UNITS/3 ML VIAL SQ SCH ×6 (00:25→20:03)
[2020-08-18] MEDS: D10% in Water 500 ML IVC PRN ×2 (02:25→12:25)
[2020-08-18] MEDS: Ipratropium/Albuterol Neb 3 ML IH SCH ×6 (03:10→23:31)
[2020-08-18] MEDS: Dexmedetomidine HCl 400 MCG/100 ML MLS IVC SCH ×4 (03:20→19:36)
[2020-08-18 03:54] LABS: Hemoglobin 7.9 g/dL (11.5-15.4)
[2020-08-18 03:56] LABS: Basophils % 2.3 %; Eosinophils % 4.5 %; Hematocrit 25.7 % (35.3-44.9); Immature Platelets 9.3 % (1.1-6.1); Lymphocytes # 0.2 K/mcL (0.6-4.6); Lymphocytes % 47.7 %; Mean Corpuscular HGB Conc 30.7 g/dL (31.6-35.5); Mean Corpuscular Hemoglobin 27.5 pg (28.0-33.3); Mean Corpuscular Volume 89.5 fL (83.0-100.0); Monocytes % 6.8 %; Neutrophils # 0.2 K/mcL (1.6-8.9); Nucleated Red Blood Cells 6.8 /100 WBC (0); Red Blood Count 2.87 M/mcL (3.82-4.97); Red Cell Distribution Width 18.3 % (11.5-14.5); Segmented Neutrophils % 38.7 %
[2020-08-18 04:10] LABS: Platelet Count 22 K/mcL (140-400); White Blood Count 0.4 K/mcL (4.3-11.1)
[2020-08-18 04:13] LABS: Calcium 5.9 mg/dL (8.6-10.3); Phosphorous 7.2 mg/dL (2.7-4.5); Potassium 4.8 mEq/L (3.5-5.1)
[2020-08-18 04:27] LABS: ABG Base Excess -1 mEq/L (-2 to 3); ABG HCO3 25 mEq/L (21-27); ABG Oxygen Saturation 96 % (95-98); ABG PCO2 46 mmHg (35-45); ABG PH 7.34 pH Units (7.32-7.45); ABG PO2 88 mmHg (85-104); ABG TCO2 26 mEq/L (20-26); Blood Gas Modality ASSIST CONTROL; Blood Gas VT 380 cc
[2020-08-18] MEDS ORDERED: 0.9 % Sodium Chloride 250 ML ONE ×2 (04:40→04:43)
[2020-08-18 04:41] LABS: Platelet Estimate Marked Decrease (Normal)
[2020-08-18 04:55] LABS: VBG Ionized Calcium 0.85 mmol/L (1.15-1.35)
[2020-08-18] MEDS: Calcium Gluconate 1gm/50mL 1 GM/50 ML BAG IVPB SCH ×2 (05:30→06:04)
[2020-08-18] MEDS: Norepinephrine 4 MG/254 ML IV.SOLN IVC SCH (06:03)
[2020-08-18] MEDS: Budesonide/Formoterol 160/4.5 1 PUFF INH IH SCH ×2 (07:36→19:40)
[2020-08-18] MEDS ORDERED: Vancomycin 1 EACH in 0.9 % Sodium Chloride 250 ML IVPB PRN (08:00)
[2020-08-18] MEDS: *HR* Dextrose 50 % in Water (Vial) 50 ML VIAL IVP PRN ×2 (08:50→11:55)
[2020-08-18] MEDS: Chlorhexidine Rinse 15 ML MOUTHWASH MM SCH ×2 (09:17→20:02)
[2020-08-18] MEDS: Fluconazole 400 MG/200 ML 400 MG/200 ML BAG IVPB SCH (09:18)
[2020-08-18] MEDS: Fluticasone Propionate Nasal 50 MCG/SPRAY BOTTLE NS SCH (09:18)
[2020-08-18] MEDS: Insulin DETEMIR 100 UNIT/ML X5UNITS SQ SCH ×2 (09:18→20:04)
[2020-08-18] MEDS: Cefepime HCl 2,000 MG in Water for inj. (sterile) 20 ML IVP SCH (09:19)
[2020-08-18] MEDS: Pantoprazole 40 MG VIAL IVP SCH (09:20)
[2020-08-18] MEDS: Gabapentin 300 MG CAPSULE PO SCH ×3 (09:20→20:02)
[2020-08-18] MEDS: FentaNYL (PF) 2,500 MCG/50 ML IV.SOLN IVC SCH ×2 (10:57→21:05)
[2020-08-18] MEDS ORDERED: Calcium Chloride 1,000 MG in 0.9 % Sodium Chloride 100 ML IVPB ONE (11:14)
[2020-08-18] MEDS ORDERED: Clinimix 5%-20% SOLUTION 2,000 ML with MVI, adult with vitamin K 10 ML, Trace Element... IVC SCH (17:00)
[2020-08-18] MEDS: *HR* Midazolam HCl 2 MG/2 ML VIAL IVP PRN (22:13)
[2020-08-19] MEDS: MetroNIDAZOLE 500 MG/100 ML 500 MG/100 ML BAG IVPB SCH ×3 (00:12→19:22)
[2020-08-19] MEDS: Artificial Tears SOLN 15 ML BOTTLE BOTH EYES SCH ×6 (00:13→22:19)
[2020-08-19] MEDS: Insulin LISPRO 300 UNITS/3 ML VIAL SQ SCH ×9 (00:13→22:26)
[2020-08-19] MEDS: Dexmedetomidine HCl 400 MCG/100 ML MLS IVC SCH ×4 (00:32→17:39)
[2020-08-19] MEDS: Ipratropium/Albuterol Neb 3 ML IH SCH ×5 (03:19→16:29)
[2020-08-19 04:02] LABS: ABG Base Excess -5 mEq/L (-2 to 3); ABG HCO3 23 mEq/L (21-27); ABG Oxygen Saturation 88 % (95-98); ABG PCO2 58 mmHg (35-45); ABG PO2 68 mmHg (85-104); ABG TCO2 25 mEq/L (20-26); Blood Gas VT 380 cc
[2020-08-19 04:06] LABS: Hemoglobin 9.3 g/dL (11.5-15.4)
[2020-08-19 04:08] LABS: Eosinophils % 7.1 %; Hematocrit 30.2 % (35.3-44.9); Immature Platelets 12.9 % (1.1-6.1); Lymphocytes # 0.2 K/mcL (0.6-4.6); Lymphocytes % 47.6 %; Mean Corpuscular HGB Conc 30.8 g/dL (31.6-35.5); Mean Corpuscular Hemoglobin 28.1 pg (28.0-33.3); Mean Corpuscular Volume 91.2 fL (83.0-100.0); Monocytes % 7.1 %; Neutrophils # 0.2 K/mcL (1.6-8.9); Red Blood Count 3.31 M/mcL (3.82-4.97); Red Cell Distribution Width 18.1 % (11.5-14.5); Segmented Neutrophils % 38.2 %
[2020-08-19] MEDS: *HR* Midazolam HCl 2 MG/2 ML VIAL IVP PRN (04:09)
[2020-08-19 04:16] LABS: Magnesium 1.9 mg/dL (1.6-2.6); Phosphorous 5.4 mg/dL (2.7-4.5); Potassium 4.2 mEq/L (3.5-5.1)
[2020-08-19 04:18] LABS: Platelet Count 16 K/mcL (140-400); White Blood Count 0.4 K/mcL (4.3-11.1)
[2020-08-19 05:02] LABS: Anisocytosis 1+ (Not Present); Platelet Estimate Marked Decrease (Normal)
[2020-08-19] MEDS: Budesonide/Formoterol 160/4.5 1 PUFF INH IH SCH (07:21)
[2020-08-19] MEDS: Chlorhexidine Rinse 15 ML MOUTHWASH MM SCH ×2 (07:46→22:30)
[2020-08-19] MEDS: Cefepime HCl 2,000 MG in Water for inj. (sterile) 20 ML IVP SCH (07:47)
[2020-08-19] MEDS: Pantoprazole 40 MG VIAL IVP SCH (07:48)
[2020-08-19] MEDS: Gabapentin 300 MG CAPSULE PO SCH ×3 (07:48→22:31)
[2020-08-19] MEDS: Fluconazole 400 MG/200 ML 400 MG/200 ML BAG IVPB SCH (07:48)
[2020-08-19] MEDS: Insulin DETEMIR 100 UNIT/ML X5UNITS SQ SCH (07:52)
[2020-08-19] MEDS: FentaNYL (PF) 2,500 MCG/50 ML IV.SOLN IVC SCH (09:26)
[2020-08-19] MEDS: Fluticasone Propionate Nasal 50 MCG/SPRAY BOTTLE NS SCH (09:27)
[2020-08-19 10:11] LABS: Albumin 1.7 g/dL (3.5-5.7); Albumin/Globulin Ratio 0.6 (1.1-2.2); Bilirubin,Direct 0.9 mg/dL (0.0-0.2); Bilirubin,Indirect 0.6 mg/dL (0.0-1.0); Bilirubin,Total 1.5 mg/dL (0.3-1.0); Total Protein 4.7 g/dL (6.4-8.9)
[2020-08-19] MEDS ORDERED: Calcium Chloride 1,000 MG in 0.9 % Sodium Chloride 100 ML IVPB ONE (10:49)
[2020-08-19] MEDS ORDERED: *HR* Metoprolol 5 MG/5 ML VIAL IVP ONE ×2 (13:04→13:07)
[2020-08-19] MEDS ORDERED: Morphine Sulfate 2 MG/ML SYRINGE IVP PRN (13:54)
[2020-08-19] MEDS: Morphine Sulfate 2 MG/ML SYRINGE IVP PRN ×2 (14:39→19:33)
[2020-08-19] MEDS ORDERED: Clinimix 5%-20% SOLUTION 2,000 ML with MVI, adult with vitamin K 10 ML, Trace Element... IVC SCH (17:00)
[2020-08-19] MEDS: *HR* LORazepam 2 MG/ML VIAL IVP PRN ×2 (20:18→23:09)
[2020-08-19] MEDS ORDERED: Insulin DETEMIR 100 UNIT/ML X5UNITS SQ SCH (21:00)
[2020-08-20] MEDS: *HR* LORazepam 2 MG/ML VIAL IVP PRN ×6 (01:09→22:52)
[2020-08-20] MEDS: Morphine Sulfate 2 MG/ML SYRINGE IVP PRN ×7 (01:10→22:30)
[2020-08-20 03:36] LABS: Influenza A PCR Body Fluid NOT DETECTED; Influenza B PCR Body Fluid NOT DETECTED; RVP Body Fluid Source RLL BAL
[2020-08-20 06:24] LABS: RSV PCR Body Fluid NOT DETECTED
[2020-08-20] MEDS ORDERED: Fluconazole 200 MG/100 ML 200 MG/100 ML BAG IVPB SCH (09:00)
[2020-08-20] MEDS: FentaNYL (PF) 1,000 MCG/100 ML IV.SOLN IVC SCH ×2 (13:38→23:53)
[2020-08-20] MEDS: Atropine Sulfate 1% 40 DROP/2 ML BOTTLE SL PRN ×3 (13:44→23:36)
[2020-08-20] MEDS ORDERED: Artificial Tears SOLN 15 ML BOTTLE BOTH EYES SCH (21:00)
[2020-08-21] MEDS: Morphine Sulfate 2 MG/ML SYRINGE IVP PRN ×3 (02:36→05:56)
[2020-08-21] MEDS: *HR* LORazepam 2 MG/ML VIAL IVP PRN ×4 (03:35→18:27)
[2020-08-21] MEDS: Atropine Sulfate 1% 40 DROP/2 ML BOTTLE SL PRN (03:36)
[2020-08-21] MEDS ORDERED: *HR* FentaNYL (PF) 100 MCG/2 ML VIAL IVP PRN (09:45)
[2020-08-21] MEDS ORDERED: Scopolamine Patch 1.5 MG PATCH.TD72 TD SCH (10:00)
[2020-08-21] MEDS: FentaNYL (PF) 1,000 MCG/100 ML IV.SOLN IVC SCH (11:30)
[2020-08-21 11:41] VITALS: BP 114/60
[2020-08-21] MEDS ORDERED: Haloperidol Lactate 5 MG/ML VIAL IVP PRN (14:08)
[2020-08-21] MEDS ORDERED: *HR* LORazepam 2 MG/ML VIAL IVP SCH (16:00)
== END 2020-08-21 18:38 | disposition expired | DRG 680 ==
LOC: EMEROOARM 16:20 → 3ANU 16:20 → SUATTDRO 20:51 → 3ANU 21:39 → SUATTDRO 08-08 17:27 → ICNU 08-11 21:39 → 2ANU 08-19 21:44
PROVIDERS: ADMIT Student in an Organized Health Care Education/Training Program; ATTEND Surgery
PROC: GENLINE (2020-08-11 19:30)